=== PATIENT | female | born 1975 | race Caucasian/White ===

== ENCOUNTER 2023-03-13 05:54 | Day surgery (SDC) | payer OTHER, SELFPAY ==
[2023-03-13] VITALS (17 sets, daily range): BP systolic 100–151; BP diastolic 62–112; BMI 25.3
[2023-03-13 06:40] LABS: Glucose - Point of Care 94 mg/dl (70-99)
[2023-03-13 06:56] LABS: Hematocrit 44.2 % (37.0-47.0); Hemoglobin 14.9 g/dL (12.0-16.0); Mean Corp Hgb Conc. 33.7 g/dL (33.0-37.0); Mean Corpuscular Hgb 28.7 pg (27.0-31.0); Mean Platelet Volume 9.9 fL (7.4-10.4); Platelet Count 275 10^3/uL (130-400); White Blood Cell Count 5.6 10^3/uL (4.8-10.8)
[2023-03-13 07:05] LABS: APTT 28.7 Sec (23.4-35.0); INR 1.05
--- NOTE | 2023-03-13 07:19 | W.SUR.PREOP ---
Pre-Operative Surgical Note
-
I have examined this patient prior to the performance of the scheduled procedure.
The patient's condition is unchanged from the time of the current History and
Physical and the patient is able to undergo the scheduled procedure.
[2023-03-13 07:46] LABS: Blood Urea Nitrogen 29 mg/dl (7-17); Calcium 9.3 mg/dl (8.4-10.2); Carbon Dioxide 36 mmol/L (22-30); Chloride 91 mmol/L (98-107); Estimated Creatinine Clearance 11 ml/min; Glucose 106 mg/dl (70-99); Potassium 4.9 mmol/L (3.5-5.1); Sodium 136 mmol/L (135-145); eGFR 8.09
--- NOTE | 2023-03-13 08:37 | W.IMMPOSTOP ---
Surgical Immed Post Op Note
-
Primary Surgeon: Alonzo Tejada III, MD
Assisting Surgeon: Maurice Noriega MD PGY2
Pre-op Diagnosis: PAD
Post-op Diagnosis: PAD
Procedure Performed:
1. Ultrasound guided right BRICK CATCHER access (5Fr)
2. LLE Angiogram
Anesthesia Type: MAC + Local
Specimen / Cultures: None
Estimated Blood Loss: Min
Complications: None
Operative Findings: No significant occlusive disease. Small vessel disease in the foot. No lesions requiring treatment.
--- NOTE | 2023-03-13 09:20 | OR.RPT ---
Operative Report
Operative Report
Date of Operation: 03/13/2023
Pre Op Diagnosis: Peripheral arterial disease
Post Op Diagnosis: Peripheral arterial disease
Procedure:
1.) Selective catheterization of third order lower extremity artery
2.) Diagnostic aortobiiliac arteriogram
3.) Diagnostic left lower extremity arteriogram
4.) Ultrasound-guided percutaneous access to the right common femoral artery
Surgeon: Alonzo Tejada III, MD
Retail Merchandising Manager: Maurice Noriega MD PGY-2
Anesthesia: Sedation with local
Fluoroscopy:
5.6 min
32 mGy
13.23 Gy.cm2
Complications: None
Estimated Blood Loss: Less than 5 cc
History and Indications for Procedure: 48-year-old female with end-stage renal disease, diabetes and peripheral arterial disease. She has poorly healing fractures in her left foot and ankle. I recommended a diagnostic arteriogram with possible
endovascular intervention in anticipation of her potentially requiring surgery.
Procedure in Detail: Erica Sanchez was correctly identified and placed supine on the operating table. After adequate induction of anesthesia the bilateral groins were prepped and draped in the usual sterile fashion. A timeout was performed with
the nursing and anesthesia staff confirming the patient's identity as well as the nature and laterality of the procedure.
The right common femoral artery was identified under ultrasound guidance. The artery was patent with some calcified luminal plaque present. The superior and inferior aspects of the femoral head were identified with radiographic guidance and marked
at the skin level. The proposed puncture site was infiltrated with local anesthesia. We saved a copy of the ultrasound image to the medical record. Under ultrasound guidance we accessed the right common femoral artery with a micropuncture needle and
upsized to a 5 Fr sheath over a Bentson wire. The wire and a [employer] hook flush catheter were advanced into the distal abdominal aorta and a diagnostic aorto-biiliac arteriogram was performed:
AORTO-ILIAC ARTERIOGRAM:
Aorta: Widely patent. Peripheral wall calcification identified. No stenosis identified
Right common iliac artery: Patent with no stenosis identified
Right external iliac artery: Patent with no stenosis identified
Left common iliac artery: Patent with no stenosis identified
Left external iliac artery: Patent with no stenosis identified
Under roadmap guidance using a Glidewire and the Shepherds hook catheter we selected the left common iliac artery and then the external iliac artery. The juan's hook catheter was tracked up and over the aortic bifurcation and placed in the
distal external iliac artery. A diagnostic left lower extremity arteriogram was then performed which demonstrated the following:
LEFT LOWER EXTREMITY:
Common femoral artery: Patent with no stenosis identified
Profunda femoral artery: Patent with no stenosis identified
Superficial femoral artery: Patent with no stenosis identified
Popliteal artery: Patent with no stenosis identified
Anterior tibial artery: Patent with no stenosis identified
Tibioperoneal trunk: Patent with no stenosis identified
Peroneal artery: Patent with no stenosis identified
Posterior tibial artery: Patent with no stenosis identified
*Evidence of small vessel disease was identified in the left foot, largely in the plantar branch distribution
Satisfied with this diagnostic result I then concluded the procedure. The catheter was pulled from the 5 Georgian sheath.
The patient tolerated the procedure well and was taken to the recovery area in stable condition.
Attestation: I was present and responsible for the entire procedure.
Signed:
Alonzo Tejada III, MD
[facility] Surgery
[phone] (ubfh)
[2023-03-13] MEDS: DILAUDID 0.25 MG IV ×2 (09:25→09:37)
[2023-03-13 13:34] LABS: Glucose - Point of Care 176 mg/dl (70-99)
== END 2023-03-13 13:55 | disposition home or self-care (01) ==
LOC: CATH 05:54
PROVIDERS: ATTENDING PHYSICIAN Surgery Vascular Surgery; FAMILY PHYSICIAN Family Medicine
DX: I73.9 Peripheral vascular disease, unspecified (principal); I13.2 Hypertensive heart and chronic kidney disease with heart failure and with stage 5 chronic kidney disease, or end stage renal disease; E10.22 Type 1 diabetes mellitus with diabetic chronic kidney disease; N18.6 End stage renal disease; I50.22 Chronic systolic (congestive) heart failure; Z99.2 Dependence on renal dialysis; Z79.4 Long term (current) use of insulin; Z96.41 Presence of insulin pump (external) (internal); S82.899D Other fracture of unspecified lower leg, subsequent encounter for closed fracture with routine healing; I70.0 Atherosclerosis of aorta; X58.XXXD Exposure to other specified factors, subsequent encounter
CPT/HCPCS: 36247; 75716; 76937; 80048; 82962; 85027; 85610; 85730; 86850; 86900; 86901; C1769; C1894; Q9967

== ENCOUNTER → 2023-10-18 13:01 | Outpatient (REF) | payer OTHER, SELFPAY | LOC: RAD 13:01 | PROVIDERS: ATTENDING PHYSICIAN Physician Assistant; FAMILY PHYSICIAN Family Medicine | DX: I73.9 Peripheral vascular disease, unspecified (principal) | CPT/HCPCS: 93922; 93925 ==

== ENCOUNTER 2023-10-23 10:53 | Day surgery (SDC) | payer OTHER, SELFPAY ==
--- NOTE | 2023-10-23 10:59 | W.ICD.CONTRA ---
Post ICD/DELI COOK-D
-
History of MT?: Yes
LV Function
Left ventricular function study result?: Ejection Fraction >/= 40%
ACEI/ARB/ARNI
Patient already on ACEI/ARB/ARNI: Yes
Beta-Robyn
Patient already on Beta Robyn: Yes
[2023-10-23 11:34] VITALS: BP 136/71
[2023-10-23 12:15] VITALS: BP 136/71
[2023-10-23 12:31] LABS: INR 1.23; PT 15.4 Sec (11.4-14.6)
[2023-10-23 12:32] LABS: APTT 25.5 Sec (23.4-35.0)
[2023-10-23 12:43] LABS: ALT (SGPT) 50 U/L (0-35); AST (SGOT) 44 U/L (14-36); Alkaline Phosphatase 180 U/L (38-126); Blood Urea Nitrogen 42 mg/dl (7-17); Carbon Dioxide 14 mmol/L (22-30); Chloride 117 mmol/L (98-107); Glucose 86 mg/dl (70-99); Potassium 4.4 mmol/L (3.5-5.1); Sodium 140 mmol/L (135-145); Total Bilirubin 0.9 mg/dl (0.2-1.3); Total Protein 6.7 g/dl (6.3-8.2); eGFR > 60.00
[2023-10-23 12:55] LABS: Glucose - Point of Care 87 mg/dl (70-99)
[2023-10-23 12:58] LABS: Calcium 10.3 mg/dl (8.4-10.2)
[2023-10-23] MEDS: VANCOCIN 200 IV (13:10)
[2023-10-23 14:56] VITALS: BP 131/107
--- NOTE | 2023-10-23 15:05 | ITS.CL.ICD ---
Assistant To The Director - ICD
Implantable Cardioverter Defibrillator
Procedure Report:
Date of Procedure: October 23, 2023
Patient : 1975
Procedures: Dual-chamber ICD generator change
Indication: 1) Class III CHF, LVEF 45%, 2) narrow QRS 3) primary prevention device
Implants:�
Pulse Generator: Medtronic; Model# DTPA 2 D4; Serial#�[id number]
Atrial Lead: Medtronic: Model# 5076; Serial# [id number]
Right Ventricular Lead: Medtronic; Model# 6935; serial number [id number]
�
Technique: The patient was prepped and draped in the usual fashion. Local anesthetic was applied to the left prepectoral subcutaneous tissue. A 4 inch incision was made. The chronic pocket was entered and the chronic device was removed from the
field. The leads were appropriately attached to the new device. The pocket was irrigated with antibiotic solution. The device and leads were placed in the pocket and the device were placed back in the chronic pocket. The incision was closed with
absorbable sutures. The estimated blood loss was minimal. There were no complications. Device based testing was performed as described below. IV contrast total: 0 cc.
�
System Analysis:
RA lead: P: 0.4 mV; Threshold: 0.75 V @ 0.5 ms; Impedance: 399 ohms.
RV lead: R: 5.5 mV; Threshold: 1.0 V @ 0.5 ms; Impedance: 456 ohms.
�
Final Programming: Tachy: VT/VF:188; AAI�DDD 60-130 beats a minute
�
Conclusion: Uncomplicated Biventricular ICD implant and testing. Compensated filling pressures.
�
Recommendation: Routine post ICD care.
�
cc: Dr. Erica Zayas
�
[2023-10-23 15:11] VITALS: BP 154/83
[2023-10-23 15:12] LABS: Glucose - Point of Care 95 mg/dl (70-99)
[2023-10-23 15:26] VITALS: BP 148/75
[2023-10-23 15:28] VITALS: BP 140/74
== END 2023-10-23 15:44 | disposition home or self-care (01) ==
LOC: CATH 10:53
PROVIDERS: ATTENDING PHYSICIAN Internal Medicine Cardiovascular Disease; FAMILY PHYSICIAN Family Medicine; OTHER PHYSICIAN Internal Medicine Cardiovascular Disease
DX: Z45.02 Encounter for adjustment and management of automatic implantable cardiac defibrillator (principal); I50.22 Chronic systolic (congestive) heart failure; I11.0 Hypertensive heart disease with heart failure; R94.39 Abnormal result of other cardiovascular function study; I25.10 Atherosclerotic heart disease of native coronary artery without angina pectoris; Z79.52 Long term (current) use of systemic steroids; I10 Essential (primary) hypertension; Z79.899 Other long term (current) drug therapy; Z95.5 Presence of coronary angioplasty implant and graft
CPT/HCPCS: 33263; 80053; 82962; 85610; 85730; C1721

== ENCOUNTER 2023-12-07 21:05 | Inpatient (IN) | payer OTHER, SELFPAY ==
[2023-12-07] VITALS (12 sets, daily range): BP systolic 78–143; BP diastolic 54–82; BMI 26.3
--- NOTE | 2023-12-07 10:04 | HP.FOC2 ---
Focused History & Physical
Chief Complaint
HPI:
Chief Complaint: Aneurysmal fistula, planned open procedure today
HPI / Indication for Planned Procedure: 48-year-old female here today for planned revision of AV fistula.
Patient is bothered by pulsation/throbbing sensation over the fistula site and feels that her aneurysm is growing. For this we will revise the fistula and maintain patency. She is doing very well status post transplant. Patient is agreeable to
planned procedure today.
Relevant Past Medical History: Other (Depression, CAD, anxiety, CHF, hyperlipidemia, detached retina on the left, diabetes type 1, hypertension, fibromyalgia, PTSD, hypercholesterolemia, neuropathy, CKD stage V, MS, cardiac stents, GERD, anemia,
blind in left eye)
Relevant Social History: Tobacco Use (Ex-smoker)
Relevant Family History: Negative
Relevant Past Surgical History: Positive for (AV fistula, permanent pacemaker, CABG, kidney/pancreas transplant at [place])
Review of Systems
Review of Pertinent Systems: All Systems Negative
Medication
See Medication form for detailed medications: Yes
Medication List (including Herbals & OTC):
ezetimibe 10 mg tablet 10 mg PO DAILY High cholesterol 02/18/19
epinephrine 0.3 mg/0.3 mL injection, auto-injector (EpiPen) 0.3 mg IM ONCE PRN allergic reaction-bee stings 03/16/20
alprazolam 0.5 mg tablet 0.5 mg PO DAILYPRN PRN anxiety 07/25/22
brimonidine 0.1 % eye drops (Alphagan P) 1 drp LEFT EYE BID Eye condition 07/25/22
adapalene 0.1 %-benzoyl peroxide 2.5 % topical gel with pump 1 applic topical HS Skin Issues 01/31/23
aspirin 81 mg tablet,delayed release 81 mg DAILY 10/23/23
atovaquone 750 mg/5 mL oral suspension 1,500 mg PO DAILY 10/23/23
famotidine 20 mg tablet 20 mg DAILY 10/23/23
linaclotide 72 mcg capsule (Linzess) 72 mcg PO DAILY 10/23/23
metoprolol succinate 25 mg tablet,extended release 24 hr 37.5 mg PO DAILY 10/23/23
prednisone 5 mg tablet 5 mg PO DAILY 10/23/23
tacrolimus 1 mg capsule, immediate-release (Prograf) 3 mg BID 10/23/23
tretinoin 0.025 % topical gel 0.025 applic topical HS 10/23/23
atorvastatin 20 mg tablet 20 mg PO DAILY 12/05/23
cinacalcet 60 mg tablet 60 mg PO DAILY 12/05/23
mycophenolate sodium 180 mg tablet,delayed release (Myfortic) 720 mg PO BID 12/05/23
Medications Reviewed: Yes
Allergies and Reactions
Patient has Allergies: Yes
Noted Allergies and Reactions:
Allergy/AdvReac Type Severity Reaction Status Date / Time
bee pollen [Bee Pollen] Allergy Anaphylaxis Verified 12/05/23 11:35
penicillin V [Penicillin V] Allergy Hives Verified 12/05/23 11:35
Penicillins Allergy Hives Verified 12/05/23 11:35
Pertinent Physical Exam
All Other Systems: Negative
Head/Neck: Normal
Lungs: Normal
Heart: Normal
Abdomen: Normal
Extremities: Normal and Other (AV fistula)
Neurological: Normal
Diagnosis / Assessment
End-stage renal disease status post transplant, not currently on dialysis
Aneurysmal AV fistula
Plan / Procedure
Proceeding with planned fistula revision today
Anesthesia/Sedation to be done by Anesthesia Provider: Yes
[2023-12-07 13:52] LABS: Hematocrit 41.5 % (37.0-47.0); Mean Corp Hgb Conc. 33.7 g/dL (33.0-37.0); Mean Platelet Volume 10.3 fL (7.4-10.4); Platelet Count 285 10^3/uL (130-400); Red Blood Cell Count 5.19 10^6/uL (4.20-5.40); White Blood Cell Count 8.7 10^3/uL (4.8-10.8)
[2023-12-07 14:03] LABS: INR 1.18; PT 14.8 Sec (11.4-14.6)
[2023-12-07 14:04] LABS: APTT 27.6 Sec (23.4-35.0)
[2023-12-07 14:13] LABS: Blood Urea Nitrogen 32 mg/dl (7-17); Calcium 9.7 mg/dl (8.4-10.2); Carbon Dioxide 20 mmol/L (22-30); Chloride 107 mmol/L (98-107); Estimated Creatinine Clearance 64 ml/min; Glucose 82 mg/dl (70-99); Potassium 4.9 mmol/L (3.5-5.1); Sodium 141 mmol/L (135-145); eGFR > 60.00
[2023-12-07] MEDS: BACTROBAN NASAL 1 GRAM NASAL (16:50)
[2023-12-07] MEDS: VANCOCIN 200 IV (16:50)
[2023-12-07] MEDS: PERIDEX 0.12% ORAL RINSE 15 ML PO (16:50)
[2023-12-07] MEDS: NSS 500 IV (16:50)
--- NOTE | 2023-12-07 17:00 | PTCARENOTE ---
Received report from Mariola COLON for shift relief. Pt awake, alert, and oriented x 3. Pt without complaints at this time. Vancomycin currently infusing at 200ml/hr. Awaiting pt's procedure. Will continue to monitor.
[2023-12-07 17:48] LABS: Glucose - Point of Care 127 mg/dl (70-99)
[2023-12-07 19:03] LABS: Glucose - Point of Care 104 mg/dl (70-99)
--- NOTE | 2023-12-07 19:52 | OR.RPT ---
Operative Report
Operative Report
Date of Operation: 12/07/2023
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
Procedure: Revision of aneurysmal right upper arm arteriovenous fistula with aneurysmorrhaphy
Surgeon: Alonzo Tejada III, MD
Social Sciences Chair: Derek De Los Santos MD PhD PGY-6
Anesthesia: General
Complications: None
Estimated Blood Loss: 100 cc
History and Indications for Procedure: 48-year-old female with aneurysmal right upper arm brachiobasilic arteriovenous fistula. She had been successfully transplanted recently and is off dialysis however began to experience enlargement of the
fistula with associated symptoms. She was brought to the operating room today for revision with planned preservation of the fistula.
Procedure in Detail: Erica Sanchez was correctly identified and placed supine on the operating table with her right arm abducted 90 degrees on an armboard. After adequate induction of anesthesia her right upper extremity was prepped and draped
in the usual sterile fashion. She received preoperative antibiotics. A timeout procedure was performed with the nursing and anesthesia staff confirming the patient's identity as well as the nature and laterality of the procedure.
Using ultrasound guidance we identified the arteriovenous anastomosis as well as the entire course of the fistula in the upper arm. The aneurysmal segments were identified as well as the more normal diameter vein segments adjacent to the
arteriovenous anastomosis and more distal in the upper arm. The location of the stent in the venous outflow was also identified. The incision was planned accordingly.
An elliptical incision was made over the aneurysmal fistula. Careful sharp dissection and electrocautery were used to dissect nearly circumferentially around the aneurysmal component leaving the posterior aspect of the fistula adherent to the
deeper tissue. Proximal control was obtained around the vein adjacent to the arteriovenous anastomosis which was nonaneurysmal. Distally we were able to obtain control at a segment of vein distal to the aneurysms but proximal to the existing stent
in the venous outflow.
The patient was systemically heparinized. After 5 minutes proximal and distal clamps were placed. The aneurysmal fistula was opened with a scalpel and scissors along its length. Mural thrombus was evacuated from the aneurysmal segments. The
aneurysmal segments were then aggressively irrigated with saline and heparinized saline solution to remove any thrombus or debris. A 20 Liberian chest tube was then cut to the appropriate length and laid inside the fistula. I then debrided the
aneurysmal wall appropriately to be able to close over the 20 Liberian chest tube without significantly redundant tissue.
We then closed the fistula over the 20 Liberian chest tube using a running 4-0 Prolene suture. Prior to the completion of the suture line the chest tube segment was removed from the lumen of the fistula. The suture line was completed. Following
this we remove the clamps. Flow through the fistula was restored. There was a thrill in the fistula along with a pulse which was unchanged compared to preop.
At this point protamine was administered. Hemostasis was achieved in the wound bed. The wound was irrigated with warm saline solution. The wound was then closed in layers and sterile dressings were applied.
The patient tolerated the procedure well was taken to the recovery room in good condition. The patient had a palpable brachial pulse and radial pulse at the left wrist at the conclusion of the case.
Attestation: I was present and responsible for the entire procedure
Signed:
Alonzo Tejada III, MD
[facility] V[facility] Surgery
[phone] (cell)
--- NOTE | 2023-12-07 20:15 | W.SUR.POST ---
Surgical Immediate Post Op
Note
Pre Op Diagnosis: RUE AVF aneurysm
Post Op Diagnosis: RUE AVF aneurysm
Procedure Performed: RUE AVF Revision
Primary Surgeon: Alonzo Tejada MD
Secondary Surgeons: Derek De Los Santos MD, PhD
Anesthesia: Per Anesthesia
Estimated Blood Loss: 25 cc
Fluids: Per Anesthesia
Drains/Shunts: None
Specimens/Cultures: Aneurysm wall
Doppler/Duplex/Angio (Y/N): No
Complications: None
Operative Findings: RUE AVF aneurysmorrhaphy with patent flow post-procedure
[2023-12-07 20:16] LABS: Glucose - Point of Care 103 mg/dl (70-99)
--- NOTE | 2023-12-07 21:00 | PTCARENOTE ---
Received patient from PACU. Pt AOx3, no pain at this time, on room air, VSS. Patient with right AV fistula open to air, some bloody drainage. No complaints at this time. Oriented to room, see flow sheet for assessment.
[2023-12-07 21:48] LABS: Glucose - Point of Care 93 mg/dl (70-99)
[2023-12-07] MEDS: PROGRAF 3 MG PO (22:26)
[2023-12-07] MEDS: HEPARIN 5000 UNITS SC (22:27)
[2023-12-07] MEDS: ALPHAGAN P 0.1% EYE DROPS 1 DROP LEFT EYE (22:27)
[2023-12-07] MEDS: MYFORTIC DELAYED REL. 720 MG PO (22:27)
[2023-12-08] MEDS: ROXICODONE 5 MG PO (02:55)
[2023-12-08 03:19] VITALS: BP 118/65
[2023-12-08] MEDS: MORPHINE SULFATE 2 MG IV (04:08)
[2023-12-08 05:58] VITALS: BMI 26.1
[2023-12-08 07:15] VITALS: BP 104/57
--- NOTE | 2023-12-08 08:41 | W.PN.VS ---
Today's Communication / Plan
-
Discharge home
Assessment/Plan
-
POD1 RUE AVF revision
-Home today
F/U in the office in 2 weeks
Subjective Data
-
Date of Service: December 08, 2023
Looks great
Sitting up eating b'fast
No complaints
Minimal pain in right arm
Objective Data
-
Vital Signs
Temp Pulse Resp BP Pulse Ox
98.0 F 51 16 104/57 97
12/08/23 07:15 12/08/23 07:15 12/08/23 07:15 12/08/23 07:15 12/08/23 07:15
Intake and Output
12/07/23 12/08/23 12/09/23
06:59 06:59 06:59
Intake Total 320 / 320
Balance 320 / 320
Intake:
Oral fluids 320 / 320
Other:
Number of approximated SMALL 1
amounts of urine
Calcium Cancelled 12/07/23 16:44
Physical Exam
-
Incision right arm clean/dry
Right hand pink/warm
Palpable thrill/pulse in upper arm near axilla - patent fistula
Alert/oriented
NAD
Non labored breathing
[2023-12-08] MEDS: ALPHAGAN P 0.1% EYE DROPS LEFT EYE (08:50)
[2023-12-08] MEDS: DELTASONE 5 MG PO (08:52)
[2023-12-08] MEDS: PEPCID 20 MG PO (08:52)
[2023-12-08] MEDS: LIPITOR 20 MG PO (08:53)
[2023-12-08] MEDS: ZETIA 10 MG PO (08:53)
[2023-12-08] MEDS: SENSIPAR 60 MG PO (08:53)
[2023-12-08] MEDS: MYFORTIC DELAYED REL. 720 MG PO (08:54)
[2023-12-08] MEDS: TOPROL XL 37.5 MG PO (08:55)
[2023-12-08] MEDS: ASPIR LOW (ENTERIC COATED) 81 MG PO (08:56)
[2023-12-08] MEDS: HEPARIN 5000 UNITS SC (08:57)
[2023-12-08] MEDS: PROGRAF 3 MG PO (08:59)
[2023-12-08 09:27] LABS: Hematocrit 42.9 % (37.0-47.0); Hemoglobin 14.1 g/dL (12.0-16.0); Mean Corp Hgb Conc. 32.9 g/dL (33.0-37.0); Mean Corpuscular Hgb 26.3 pg (27.0-31.0); Mean Platelet Volume 10.6 fL (7.4-10.4); Platelet Count 258 10^3/uL (130-400); Red Blood Cell Count 5.36 10^6/uL (4.20-5.40); White Blood Cell Count 8.7 10^3/uL (4.8-10.8)
--- NOTE | 2023-12-08 09:45 | W.DCSUMMARY ---
Discharge Summary
Discharge Data
Date of Admission: 12/07/23
Date of Discharge: 12/08/23
-
Pending Results: No
Hospital Course
Attending: Mallory
Consultants: None
Allergies: Penicillin, bees
Procedure with date: 12/07/23: Revision of aneurysmal right upper arm arteriovenous fistula with aneurysmorrhaphy
History of present illness: The patient is an 48 -year-old female with multiple medical conditions including: Depression, CAD, anxiety, CHF, hyperlipidemia, detached retina on the left, diabetes type 1, hypertension, fibromyalgia, PTSD,
hypercholesterolemia, neuropathy, CKD stage V, ND, cardiac stents, GERD, anemia, blind in left eye. Patient presented on 12/07/23 for scheduled procedure with Dr. Tejada. Patient presented at baseline health with no reports of recent illness or
trauma.
Hospital Course: Briefly, the patient underwent scheduled above procedure without complications, and recovered in PACU. Following recovery phase one and two patient was transferred to telemetry unit per protocol for continued monitoring. POD #1
(12/08/23) Patient ovreall doing well and tolerating PO diet. Surgical arm site clean, dry, and intact with suture line well approximated and soft. No evidence of hematoma. Patient stable for discharge to home.
Prescriptions and follow up appointment are included in the DC summary associate professor of economics note. All instructions were given to the patient in both written and verbal form and the patient expressed understanding.
Discharge Plan
-
Patient Disposition: Home (Routine Discharge)
Discharge Diagnosis/Procedures: Aneurysmal AV fistula revision
Condition: Good
Diet: No restrictions
Activity: No strenuous activity
Driving Restrictions: No driving for 1 week
Bathing Restrictions: OK to Shower
Stand Alone Forms: DC Instr - Vascular OR
Referrals:
Val Guerra PA-C [Specified Professional Personl] - 12/20/23 1:00 pm (Vascular surgery follow-up)
Saeed Patel DO [Family Provider] -
Prescriptions:
New
oxycodone 5 mg Tablet
5 mg PO Q4HPRN PRN (Reason: moderate pain) Qty: 7 0RF
Continued
ezetimibe 10 MG tablet
10 mg PO DAILY
epinephrine [EpiPen] 0.3 MG/0.3/SYRINGE auto-injector
0.3 mg IM ONCE PRN (Reason: allergic reaction-bee stings)
brimonidine [Alphagan P] 0.1 % Drops
1 drp LEFT EYE BID
alprazolam 0.5 mg Tablet
0.5 mg PO DAILYPRN PRN (Reason: anxiety)
Rx Instructions:
PROXIMATELY 1 MONTH AGO
adapalene-benzoyl peroxide 0.1-2.5 % gel with pump
1 applic TOPICAL HS
prednisone 5 mg Tablet
5 mg PO DAILY
aspirin 81 mg Tablet,Delayed Release (Dr/Ec)
81 mg PO DAILY
famotidine 20 mg Tablet
20 mg PO DAILY
tretinoin 0.025 % Gel
0.025 applic TOPICAL HS
metoprolol succinate 25 mg Tablet Extended Release 24 Hr
37.5 mg PO DAILY
tacrolimus [Prograf] 1 mg Capsule
3 mg PO BID
atovaquone 750 mg/5 mL Suspension
1,500 mg PO DAILY
Linzess 72 mcg Capsule
72 mcg PO DAILY
atorvastatin 20 mg Tablet
20 mg PO DAILY
mycophenolate sodium [Myfortic] 180 mg Tablet,Delayed Release (Dr/Ec)
720 mg PO BID
cinacalcet 60 mg Tablet
60 mg PO DAILY
Discharge Orders:
Discharge Patient (As Directed); Ordered 12/08/23
Ordered By: Alonzo Tejada III
Discharge Date and Time
Discharge Date/Time: 12/08/23 10:44
Print Language: OCCITAN
--- NOTE | 2023-12-08 09:45 | W.DS.TRANS ---
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
-
Discharge Instructions:
Discharge Diagnosis/Procedures Aneurysmal AV fistula revision
Diet No restrictions
Activity No strenuous activity
Driving Restrictions No driving for 1 week
Bathing Restrictions OK to Shower
Instructions:
Stand-Alone Forms: DC Instr - Vascular OR
Changes to Home Medications: Yes
Discharge Medications:
DC Medications w/original date entered in [employer]
ezetimibe 10 mg tablet 10 mg PO DAILY High cholesterol 02/18/19
epinephrine 0.3 mg/0.3 mL injection, auto-injector (EpiPen) 0.3 mg IM ONCE PRN allergic reaction-bee stings 03/16/20
alprazolam 0.5 mg tablet 0.5 mg PO DAILYPRN PRN anxiety 07/25/22
brimonidine 0.1 % eye drops (Alphagan P) 1 drp LEFT EYE BID Eye condition 07/25/22
adapalene 0.1 %-benzoyl peroxide 2.5 % topical gel with pump 1 applic topical HS Skin Issues 01/31/23
aspirin 81 mg tablet,delayed release 81 mg PO DAILY BLOOD THINNER 10/23/23
atovaquone 750 mg/5 mL oral suspension 1,500 mg PO DAILY ANTI BACTERIAL 10/23/23
famotidine 20 mg tablet 20 mg PO DAILY STOMACH 10/23/23
linaclotide 72 mcg capsule (Linzess) 72 mcg PO DAILY STOOL 10/23/23
metoprolol succinate 25 mg tablet,extended release 24 hr 37.5 mg PO DAILY BP 10/23/23
prednisone 5 mg tablet 5 mg PO DAILY ANTI INFLAMMTION 10/23/23
tacrolimus 1 mg capsule, immediate-release (Prograf) 3 mg PO BID ANTI REGETION 10/23/23
tretinoin 0.025 % topical gel 0.025 applic topical HS Skin Issues 10/23/23
atorvastatin 20 mg tablet 20 mg PO DAILY CHOLESTEROL 12/05/23
cinacalcet 60 mg tablet 60 mg PO DAILY BONES 12/05/23
mycophenolate sodium 180 mg tablet,delayed release (Myfortic) 720 mg PO BID ANTI REGESTION MED 12/05/23
oxycodone 5 mg tablet 5 mg PO Q4HPRN PRN moderate pain #7 tabs 12/07/23
Home Medication Changes
added oxycodone 5 mg tablet 5 mg PO Q4HPRN PRN moderate pain #7 tabs 12/07/23
Pending Results: No
[2023-12-08 09:53] LABS: Blood Urea Nitrogen 34 mg/dl (7-17); Calcium 9.5 mg/dl (8.4-10.2); Carbon Dioxide 19 mmol/L (22-30); Chloride 106 mmol/L (98-107); Estimated Creatinine Clearance 64 ml/min; Glucose 109 mg/dl (70-99); Potassium 5.1 mmol/L (3.5-5.1); Sodium 141 mmol/L (135-145); eGFR > 60.00
--- NOTE | 2023-12-08 11:44 | CM ---
Patient discharged prior to CM being able to see her in room. Per nursing patient home with no needs anticipated.
== END 2023-12-08 10:44 | disposition home or self-care (01) | DRG 253 ==
LOC: 2 SOUTH 21:05
PROVIDERS: Nurse Practitioner Acute Care; ADMITTING PHYSICIAN Surgery Vascular Surgery; FAMILY PHYSICIAN Family Medicine
PROC: 05BB0ZZ Excision of Right Basilic Vein, Open Approach (ICD-10-PCS; 2023-12-07)
DX: T82.510A Breakdown (mechanical) of surgically created arteriovenous fistula, initial encounter (principal); I13.2 Hypertensive heart and chronic kidney disease with heart failure and with stage 5 chronic kidney disease, or end stage renal disease; N18.5 Chronic kidney disease, stage 5; I77.0 Arteriovenous fistula, acquired; Y71.2 Prosthetic and other implants, materials and accessory cardiovascular devices associated with adverse incidents; E10.22 Type 1 diabetes mellitus with diabetic chronic kidney disease; E10.40 Type 1 diabetes mellitus with diabetic neuropathy, unspecified; E78.00 Pure hypercholesterolemia, unspecified; F43.10 Post-traumatic stress disorder, unspecified; I25.10 Atherosclerotic heart disease of native coronary artery without angina pectoris; I50.9 Heart failure, unspecified; I72.1 Aneurysm of artery of upper extremity; M79.7 Fibromyalgia
CPT/HCPCS: 88304; 88311; 36832; 80048; 82962; 85027; 85610; 85730

== ENCOUNTER → 2024-05-22 07:02 | Outpatient (REF) | payer OTHER, SELFPAY | LOC: HWRCS 07:02 | PROVIDERS: ATTENDING PHYSICIAN Internal Medicine Cardiovascular Disease; FAMILY PHYSICIAN Family Medicine | DX: I50.22 Chronic systolic (congestive) heart failure (principal); I42.9 Cardiomyopathy, unspecified | CPT/HCPCS: 93306 ==

== ENCOUNTER → 2024-11-10 12:54 | Outpatient (REF) | payer OTHER, SELFPAY | LOC: HWRCS 12:54 | PROVIDERS: ATTENDING PHYSICIAN Internal Medicine Cardiovascular Disease; FAMILY PHYSICIAN Family Medicine | DX: I48.0 Paroxysmal atrial fibrillation (principal); I50.22 Chronic systolic (congestive) heart failure | CPT/HCPCS: 93306 ==

== ENCOUNTER 2024-12-28 13:27 | Emergency (ER) | payer OTHER, SELFPAY ==
[2024-12-28 13:31] VITALS: BP 160/83
--- NOTE | 2024-12-28 14:19 | ED.GENMED ---
History of Present Illness
<Maurice Morris PA-C - Last Filed: 12/28/24 14:30>
General
Chief Complaint: Visual Problem
Source: patient and spouse
Time Seen by Provider: 12/28/24 14:06
History of Present Illness
History of Present Illness:
49-year-old female with past medical history of CHF, CAD status post previous NM, permanent pacemaker placement, CKD, [id number] diabetes, previous retinal detachment to the left eye with permanent left eye blindness presenting to the ER
for evaluation of painless visual disturbance to the right eye stating she felt as if she saw a bright flash of light and then saw the number for and then has had continuous squiggly lines and floaters with blurred vision for the last half an hour.
Patient called her second officer but did not receive a callback so decided to come to the ER here. She notes no pain, headaches, chest pain or shortness of breath or any other concerns presently. She denies any fevers or infectious symptoms.
Patient denies any use of DOAC or Coumadin
Past History
<Maurice Morris PA-C - Last Filed: 12/28/24 14:30>
Past History
ED Past Medical History: CAD, CHF, Fibromyalgia, GERD, HTN, Hypercholesterolemia, IDDM, NM (Jan 2014), Renal failure (Dialysis M-w-F), Psychiatric (Anxiety, Depression) and Other (blindness in left eye, Headaches, Diverticulitis, PNA, Sleep apnea,
Gastroporesis, Ovarian cyst, UTI, Anemia)
ED Past Surgical History: Cardiac (pacemaker/ defib, Stents X2, CABG, EF of 40%) and Other (abscess surgery, ovarian cyst surgery, laser surgery, right eye,)
Social History
Tobacco: Former smoker
Alcohol: Occasional
Drug: None
Personal: (Common law marrage)
Living: with family
Employment: Not employed
Family History
Family History: Other (n/c )
Review of Systems
<Maurice Morris PA-C - Last Filed: 12/28/24 14:30>
Review of Systems
All Other Systems: ROS reviewed and negative except as documented in HPI and ROS
Phy Exam
<Maurice Morris PA-C - Last Filed: 12/28/24 14:30>
Physical Exam
Physical Exam:
GENERAL: Alert , in no apparent distress
EYE: conjunctiva clear
Head: Normocephalic atraumatic
NECK: Supple,
ENT: mmm.
LUNGS: no acute respiratory distress
NEUROLOGICAL: Alert and oriented
SKIN: Warm and dry, skin intact.
MUSCULOSKELETAL: well perfused.
PSYCH: Normal and appropriate interaction.
Scores
<Maurice Morris PA-C - Last Filed: 12/28/24 14:30>
Heart Failure Risk
Heart Failure Risk Score: Not Applicable
Heart Score for Chest Pain Patients
STEMI patient?: Not applicable
Withdrawal Assessment of Alcohol
Withdrawal Assessment Completed?: Not applicable
Course
<Maurice Morris PA-C - Last Filed: 12/28/24 14:30>
Vital Signs
Initial and Last Documented VS:
Initial Vital Signs
Temp Pulse Resp BP Pulse Ox
97.8 F 58 16 160/83 97
12/28/24 13:31 12/28/24 13:31 12/28/24 13:31 12/28/24 13:31 12/28/24 13:31
Last Documented Vital Signs
Temp Pulse Resp BP Pulse Ox
97.8 F 58 16 160/83 97
12/28/24 13:31 12/28/24 13:31 12/28/24 13:31 12/28/24 13:31 12/28/24 14:21
<Preston Kennedy MD - Last Filed: 12/28/24 14:49>
Vital Signs
Initial and Last Documented VS:
Initial Vital Signs
Temp Pulse Resp BP Pulse Ox
97.8 F 58 16 160/83 97
12/28/24 13:31 12/28/24 13:31 12/28/24 13:31 12/28/24 13:31 12/28/24 13:31
Last Documented Vital Signs
Temp Pulse Resp BP Pulse Ox
97.8 F 58 16 160/83 97
12/28/24 13:31 12/28/24 13:31 12/28/24 13:31 12/28/24 13:31 12/28/24 14:21
<Maurice Morris PA-C - Last Filed: 12/28/24 14:30>
MDM/Problems Addressed
Differential Diagnosis Includes:
Retinal detachment
Vitreous hemorrhage
Central retinal artery occlusion
Giant cell arteritis
CVA
Intracranial bleeding
MDM/Problems Addressed:
49-year-old female presenting to the emergency department for evaluation of painless right eye visual disturbance that started 30 minutes prior to arrival. While obtaining history from the patient she received a callback from her second officer
who is requesting patient at [facility] go directly to the [facility] emergency department for them to further evaluate. Given patient already has permanent blindness to her left eye with significant concern for retinal detachment versus vitreal
hemorrhage and her only good eye decision was made to stop any further exam presently and patient will go directly from this emergency department down to [facility] now.
Chronic conditions affecting care: DM and HTN
<Maurice Morris PA-C - Last Filed: 12/28/24 14:30>
*Pulse Oximetry
SaO2: 97
Oxygen Mode of Delivery: Room air
Patient hypoxic: no
*Critical Care Note
Total Time (30-74mins, 75-104mins- exclusive of procedures): Not Applicable
ED Attending Note
<Maurice Morris PA-C - Last Filed: 12/28/24 14:30>
-
Portions of this chart may have been created with voice recognition software.� Occasional wrong word or��sound alike� substitutions may have occurred due to the inherent limitations of voice recognition software.
<Preston Kennedy MD - Last Filed: 12/28/24 14:49>
ED Attending Note
Patient seen and examined by attending physician: Yes
ED Attending Note:
Patient with history of left eye visual loss secondary to retinal detachment, presents to ED secondary to sudden onset of flashing light sensation in her right eye with squiggly lines, and approximately 40 minutes prior to arrival. Denies headache.
Denies dizziness. Denies nausea or vomiting. Patient otherwise has no complaints. Denies recent illness. Denies recent change in medications or diet.
During the course of evaluation in ED, patient received phone call from her second officer at [facility] who advised patient come to [facility] and followed up immediately for evaluation. As such, all necessary evaluation and tests
will be deferred to her second officer. Patient will be driven to [facility] [place] by her .
Discharge Plan
Departure
Patient Disposition: Home (Routine Discharge)
Date of Disposition: 12/28/24
Time of Disposition: 14:20
Patient with high blood pressure during this ER visit?: No
Discharge Problem:
Visual disturbance
Instructions: Detached retina
Prescriptions:
No Action
ezetimibe 10 MG tablet
10 mg PO DAILY
epinephrine [EpiPen] 0.3 MG/0.3/SYRINGE auto-injector
0.3 mg IM ONCE PRN (Reason: allergic reaction-bee stings)
brimonidine [Alphagan P] 0.1 % Drops
1 drp LEFT EYE BID
alprazolam 0.5 mg Tablet
0.5 mg PO DAILYPRN PRN (Reason: anxiety)
Rx Instructions:
PROXIMATELY 1 MONTH AGO
adapalene-benzoyl peroxide 0.1-2.5 % gel with pump
1 applic TOPICAL HS
prednisone 5 mg Tablet
5 mg PO DAILY
aspirin 81 mg Tablet,Delayed Release (Dr/Ec)
81 mg PO DAILY
famotidine 20 mg Tablet
20 mg PO DAILY
tretinoin 0.025 % Gel
0.025 applic TOPICAL HS
metoprolol succinate 25 mg Tablet Extended Release 24 Hr
37.5 mg PO DAILY
tacrolimus [Prograf] 1 mg Capsule
3 mg PO BID
atovaquone 750 mg/5 mL Suspension
1,500 mg PO DAILY
Linzess 72 mcg Capsule
72 mcg PO DAILY
atorvastatin 20 mg Tablet
20 mg PO DAILY
mycophenolate sodium [Myfortic] 180 mg Tablet,Delayed Release (Dr/Ec)
720 mg PO BID
cinacalcet 60 mg Tablet
60 mg PO DAILY
oxycodone 5 mg Tablet
5 mg PO Q4HPRN PRN (Reason: moderate pain) Qty: 7 0RF
Interventions
Interventions:
*Risk Screen - Suicide Last Done: 12/28/24 13:33
*Neglect/Abuse Screening Last Done: 12/28/24 13:33
Discharge Date and Time
Print Language: BENGALI
== END 2024-12-28 14:30 | disposition home or self-care (01) ==
LOC: EMR 13:27
PROVIDERS: EMERGENCY PHYSICIAN Emergency Medicine; FAMILY PHYSICIAN Family Medicine
DX: H53.9 Unspecified visual disturbance (principal); H54.62 Unqualified visual loss, left eye, normal vision right eye; E11.22 Type 2 diabetes mellitus with diabetic chronic kidney disease; I13.2 Hypertensive heart and chronic kidney disease with heart failure and with stage 5 chronic kidney disease, or end stage renal disease; N18.6 End stage renal disease; I50.9 Heart failure, unspecified; I25.2 Old myocardial infarction; E11.43 Type 2 diabetes mellitus with diabetic autonomic (poly)neuropathy; K31.84 Gastroparesis; I25.810 Atherosclerosis of coronary artery bypass graft(s) without angina pectoris; E78.00 Pure hypercholesterolemia, unspecified; G47.30 Sleep apnea, unspecified; K21.9 Gastro-esophageal reflux disease without esophagitis; M79.7 Fibromyalgia; F41.9 Anxiety disorder, unspecified; F32.A Depression, unspecified; Z79.82 Long term (current) use of aspirin; Z95.0 Presence of cardiac pacemaker; Z95.1 Presence of aortocoronary bypass graft; Z95.5 Presence of coronary angioplasty implant and graft; Z99.2 Dependence on renal dialysis; Z87.891 Personal history of nicotine dependence
CPT/HCPCS: 99281

== ENCOUNTER → 2025-03-04 11:41 | Outpatient (REF) | payer OTHER, SELFPAY | LOC: DHSLP 11:41 | PROVIDERS: ATTENDING PHYSICIAN Internal Medicine Cardiovascular Disease | DX: G47.30 Sleep apnea, unspecified (principal); R06.83 Snoring | CPT/HCPCS: 95800 ==